=== PATIENT | male | born 1990 | race African-American/Black ===

== ENCOUNTER 2019-05-01 01:06 | Emergency (ER) | payer MEDICAID ==
--- NOTE | 2019-05-01 01:25 | ED Physician Chart ---
ED Chief Complaint/HPI - Patient Information Date Seen:: 05/01/19 Time Seen:: 01:20 Chief Complaint:: Ok to book History of Present Illness:: 28 yo male with history of hyperthyroidism was brought by police to ER for ok to book. Pt reported no pain or palpitation at this time. Allergies:: Allergies Allergy/AdvReac Type Severity Reaction Status Date / Time ibuprofen [From Motrin] Allergy Verified 05/01/19 01:17 ED Review of Systems - Review of Systems General/Constitutional: No fever Head: No headache Eyes: No pain ENT: No nasal drainage Neck: No neck pain Cardio Vascular: No chest pain Pulmonary: No SOB GI: No nausea Musculoskeletal: No bone or joint pain Neurological: No focal symptoms ED Past Medical History - Past Medical History Past Medical History: Thyroid disorder (Hyperthyroidism on Methimazol 5 mg qd) Social History: Smoker, Alcohol, No Drug Use Surgical History: other (exploratory laparotomy x 2) Family Medical History - Family Member Mother History Unknown: Yes ED Physical Exam - Physical Examination General/Constitutional: Awake, Alert Head: Atraumatic Eyes: PERRL Skin: No skin lesions ENMT: Nasal exam nl Neck: No nuchal rigidity Respiratory: Clear to Auscultation Cardio Vascular: RRR, No murmur, gallop, rubs, NL S1 S2 GI: No tenderness/rebounding/guarding Other GI comments:: Abdominal incision wound healed Extremities: normal strength in all extremities Neuro/Psych: No focal deficits ED Labs/Radiology/EKG Results - Lab Results Results: Vital Signs Temp 98.8 F 05/01/19 01:10 HR 94 05/01/19 01:10 RR 18 05/01/19 01:10 BP 130/80 05/01/19 01:10 O2 Sat % 100 05/01/19 01:10 Temp 98.8 F 05/01/19 01:10 HR 94 05/01/19 01:10 RR 18 05/01/19 01:10 BP 130/80 05/01/19 01:10 O2 Sat % 100 05/01/19 01:10 ED Assessment - Assessment General Assessment: Hyperthyroidism, controlled History of abdominal surgery Assessment/Comments:: Medically cleared ED Septic Shock - . Is Septic Shock (SBP<90, OR Lactate>4 mmol\L) present?: No ED Reassessment (Disposition) - Reassessment Reassessment Condition:: Unchanged - Patient Disposition Discharge/Transfer:: Senior Care/[facility]
== END 2019-05-01 01:40 | disposition still patient (30) ==
LOC: ER 01:06
DX: E05.90 Thyrotoxicosis, unspecified without thyrotoxic crisis or storm (principal); F17.200 Nicotine dependence, unspecified, uncomplicated; Z88.6 Allergy status to analgesic agent
CPT/HCPCS: Z7502